=== PATIENT | female | born 1950 | race Hispanic/Latino ===

== ENCOUNTER 2017-03-26 05:48 | Day surgery (SDC) | payer OTHER ==
[2017-03-23 14:14] VITALS: BP 145/65
[2017-03-23 14:24] LABS: BASOPHILS % (AUTO) 0.6 % (0.0-5.0); EOSINOPHILS % (AUTO) 1.3 % (0.0-8.0); HEMATOCRIT 35.9 % (36-48); LYMPHOCYTES % (AUTO) 30.1 % (21.0-51.0); MEAN CORPUSCULAR HEMOGLOBIN 28.1 pg (27.0-33.0); MEAN CORPUSCULAR HGB CONC 33.8 g/dL (32.0-36.0); MEAN CORPUSCULAR VOLUME 83.1 fL (79-99); MONOCYTES % (AUTO) 8.2 % (3.0-13.0); NEUTROPHILS % (AUTO) 59.8 % (40.0-77.0); PLATELET COUNT (AUTO) 310 K/uL (130-400); RED BLOOD CELL COUNT(AUTO) 4.32 MIL/uL (4.00-5.50); RED CELL DISTRIBUTION WIDTH 14.7 % (11.0-15.5); WHITE BLOOD COUNT (AUTO) 8.5 K/uL (4.8-10.8)
[2017-03-23 14:35] LABS: CREATININE 0.8 mg/dL (0.5-1.5); POTASSIUM 3.8 mmol/L (3.5-5.1)
[2017-03-23 14:37] LABS: PROTHROMBIN TIME 10.5 SEC (9.6-11.6)
[~2017-03-26] VITALS: Ht 168.9 cm; Wt 123.1 kg
[2017-03-26] VITALS (7 sets, daily range): BP systolic 102–127; BP diastolic 46–92
[~2017-03-26 05:48] MED LIST: AEC81 PO; CHOL200026 PO; DILT240C3 PO; EZET10 PO; FURO20TA4 PO; ISOS30TA6 PO; NITR0.4T50 SL; RANO500T3 PO; ROSU40 PO; UBID200C18 PO; VALS1TAB75 PO
[2017-03-26] MEDS ORDERED: BUPIVACAINE/PF 0.25% 30ML VIAL IJ ONE (07:13)
[2017-03-26] MEDS ORDERED: LIDOCAINE HCL 1% MDV 50ML VIAL ONE (07:13)
[2017-03-26] MEDS ORDERED: CEFAZOLIN 1GM / D5W 50ML 150 ML ONE (07:26)
[2017-03-26] MEDS ORDERED: MEPERIDINE-PF 25 MG/ML SYG ONE ×2 (07:35→07:48)
[2017-03-26] MEDS ORDERED: MIDAZOLAM HCL 1 MG/ML 2ML VIAL ONE ×2 (07:35→07:48)
[2017-03-26] MEDS ORDERED: SODIUM CHLORIDE 0.9% 500ML 500 ML IV SCH (08:00)
[2017-03-26] MEDS ORDERED: DOXY100T2 PO (08:24)
[2017-03-26] MEDS ORDERED: ACETAMINOPHEN-CODEINE 300/30MG TAB PO PRN ×2 (08:30)
[2017-03-26] MEDS ORDERED: ONDANSETRON HCL 4 MG/2 ML VIAL IV PRN (08:30)
== END 2017-03-26 10:45 | disposition home or self-care (01) ==
LOC: DAH 05:48
PROVIDERS: ATTEND Internal Medicine Cardiovascular Disease
DX: R55 Syncope and collapse (principal); I25.10 Atherosclerotic heart disease of native coronary artery without angina pectoris; I10 Essential (primary) hypertension; G47.33 Obstructive sleep apnea (adult) (pediatric)
CPT/HCPCS: 33282; 36415; 80048; 85025; 85610; 85730; 93005; 99156; 99157; C1764; J0690; J2175 ×2; J2250 ×2; J3490 ×2; 99152; 99153

== ENCOUNTER → 2018-01-07 | Outpatient (CLI) | payer OTHER ==
[~2018-01-07] MED LIST changes: +DOXY100T2 PO
== END | disposition home or self-care (01) ==
LOC: OIH 10:37
PROVIDERS: ATTEND Internal Medicine
DX: J45.909 Unspecified asthma, uncomplicated (principal); R09.02 Hypoxemia; R06.02 Shortness of breath
CPT/HCPCS: 71046

== ENCOUNTER → 2019-03-18 | Outpatient (CLI) | payer OTHER ==
[~2019-03-18] VITALS: Ht 170.2 cm; Wt 125.2 kg
[~2019-03-18] MED LIST changes: -DILT240C3 PO; +DILT240C97 PO; -EZET10 PO; +EZET10TA13 PO; +REGADENOSON 0.4 MG/5 ML PF SYG IVP SCH
== END | disposition home or self-care (01) ==
LOC: SHCH 08:30
PROVIDERS: ATTEND Internal Medicine Cardiovascular Disease
DX: I25.10 Atherosclerotic heart disease of native coronary artery without angina pectoris (principal)
CPT/HCPCS: 78452; 93017; 96374; A9500 ×2; J2785

== ENCOUNTER → 2019-09-26 | Outpatient (CLI) | payer OTHER | END | disposition home or self-care (01) ==

== ENCOUNTER 2020-02-03 13:37 | Inpatient (IN) | payer OTHER ==
[~2020-02-03] VITALS: Ht 170.2 cm; Wt 122.0 kg
[~2020-02-03 13:37] MED LIST changes: -REGADENOSON 0.4 MG/5 ML PF SYG IVP SCH; -VALS1TAB75 PO; +VALS1TAB76 PO
[2020-02-03] MEDS ORDERED: ACETAMINOPHEN 325 MG TAB ONE (14:17)
[2020-02-03 14:20] LABS: BASOPHILS % (AUTO) 0.2 % (0.0-5.0); EOSINOPHILS % (AUTO) 0.5 % (0.0-8.0); HEMATOCRIT 38.8 % (36-48); LYMPHOCYTES % (AUTO) 4.1 % (21.0-51.0); MEAN CORPUSCULAR HEMOGLOBIN 28.3 pg (27.0-33.0); MEAN CORPUSCULAR VOLUME 83.3 fL (79-99); MONOCYTES % (AUTO) 3.9 % (3.0-13.0); NEUTROPHILS % (AUTO) 90.5 % (40.0-77.0); PLATELET COUNT (AUTO) 312 K/uL (130-400); RED BLOOD CELL COUNT(AUTO) 4.66 MIL/uL (4.00-5.50); WHITE BLOOD COUNT (AUTO) 18.9 K/uL (4.8-10.8)
[2020-02-03 14:22] LABS: APPEARANCE,URINE Clear (CLEAR); BILIRUBIN,URINE Negative (NEGATIVE); COLOR,URINE Yellow (YELLOW); GLUCOSE, URINE (UA) Negative (NEGATIVE); KETONES,URINE Negative (NEGATIVE); LEUKOCYTE ESTERASE ,URINE Negative (NEGATIVE); NITRATE,URINE Negative (NEGATIVE); OCCULT BLOOD,URINE Negative (NEGATIVE); PH,URINE 6.5 (5.0-8.0); PROTEIN,URINE Negative (NEGATIVE); UROBILINOGEN,URINE 0.2 mg/dL (0.2-1.0)
[2020-02-03] MEDS ORDERED: CEFTRIAXONE SODIUM 1 GM ONE (14:22)
[2020-02-03] MEDS ORDERED: SODIUM CHLORIDE 0.9% 50 ML IV ONE (14:23)
[2020-02-03 14:39] LABS: INR 0.94 (0.85-1.15); PARTIAL THROMBOPLASTIN TIME 28.5 SEC (26.3-35.5); PROTHROMBIN TIME 10.2 SEC (9.6-11.6)
[2020-02-03 14:39] LABS: ABG BASE EXCESS 0.9 mmol/L (-2.0-3.0); ABG HCO3 23.2 mmol/L (21.0-28.0); ABG PCO2 31 mmHg (32-45)
[2020-02-03 14:50] LABS: CARBON DIOXIDE 25 mmol/L (21-32); CHLORIDE 102 mmol/L (101-111); CREATININE 1.2 mg/dL (0.5-1.5); GLOMERULAR FILTR. RATE CALC 47 mL/min (>60); GLUCOSE,RANDOM 174 mg/dL (70-105); POTASSIUM 4.3 mmol/L (3.5-5.1); SODIUM SERUM 137 mmol/L (136-145); UREA NITROGEN, BLOOD 16 mg/dL (7-18)
[2020-02-03 15:02] LABS: ALANINE AMINOTRANSFERASE 28 U/L (12-78); ALBUMIN 3.2 g/dL (3.5-5.0); ASPARTATE AMINOTRANSFERASE 31 U/L (10-37); BILIRUBIN,TOTAL 0.6 mg/dL (0.2-1.0); CREATINE KINASE, TOTAL 268 U/L (21-232); MYOGLOBIN 193 ng/mL (10-92); TOTAL PROTEIN, SERUM 7.7 g/dL (6.0-8.3); TROPONIN I < 0.04 ng/mL (0.00-0.06)
[2020-02-03] MEDS ORDERED: AZITHROMYCIN 500MG+NS 250ML 250 ML IV ONE (15:05)
[2020-02-03] MEDS ORDERED: DOXYCYCLINE 100MG+NS 250ML IV SCH (16:45)
[2020-02-03] MEDS: CEFTRIAXONE SODIUM 1 GM IVP SCH (16:45)
[2020-02-03] MEDS: DEXAMETHASONE SOD PHOSPHATE 4 MG/ML 1ML VIAL IVP SCH (16:45)
[2020-02-03] MEDS ORDERED: ERGOCALCIFEROL (VITAMIN D2) 50,000 UNIT CAPSULE PO ONE (16:45)
[2020-02-03] MEDS: DOXYCYCLINE 100MG+NS 250ML 250 ML IV SCH (17:00)
[2020-02-03] MEDS ORDERED: HYDRALAZINE HCL 20 MG/ML VIAL IV PRN (17:00)
[2020-02-03] MEDS ORDERED: DEXAMETHASONE SOD PHOSPHATE 10MG/ML 1ML VIAL ONE (17:53)
[2020-02-03] MEDS ORDERED: DOXYCYCLINE 100MG+NS 250ML 250 ML IV ONE (17:54)
[2020-02-03] MEDS ORDERED: ERGOCALCIFEROL (VITAMIN D2) 50,000 UNIT CAPSULE ONE (17:54)
[2020-02-03] MEDS: IPRATROPIUM 0.5 MG/2.5 ML INH IH SCH (18:00)
[2020-02-03] MEDS ORDERED: FAMOTIDINE 20MG TAB 20 MG TAB ONE (20:28)
[2020-02-03] MEDS ORDERED: ACETYLCYSTEINE 600 MG CAPSULE ONE (20:28)
[2020-02-03] MEDS: ACETYLCYSTEINE 600 MG CAPSULE PO SCH (21:00)
[2020-02-04] MEDS: IPRATROPIUM 0.5 MG/2.5 ML INH IH SCH
[2020-02-04] MEDS ORDERED: CEFTRIAXONE SODIUM 1 GM ONE (02:21)
[2020-02-04] MEDS: CEFTRIAXONE SODIUM 1 GM IVP SCH ×2 (04:45→16:17)
[2020-02-04 04:59] LABS: BASOPHILS % (AUTO) 0.1 % (0.0-5.0); HEMATOCRIT 36.3 % (36-48); LYMPHOCYTES % (AUTO) 5.3 % (21.0-51.0); MEAN CORPUSCULAR HEMOGLOBIN 27.6 pg (27.0-33.0); MEAN CORPUSCULAR HGB CONC 33.3 g/dL (32.0-36.0); MEAN CORPUSCULAR VOLUME 82.9 fL (79-99); MONOCYTES % (AUTO) 1.8 % (3.0-13.0); NEUTROPHILS % (AUTO) 91.6 % (40.0-77.0); PLATELET COUNT (AUTO) 303 K/uL (130-400); RED BLOOD CELL COUNT(AUTO) 4.38 MIL/uL (4.00-5.50); RED CELL DISTRIBUTION WIDTH 14.8 % (11.0-15.5); WHITE BLOOD COUNT (AUTO) 14.2 K/uL (4.8-10.8)
[2020-02-04] MEDS: DOXYCYCLINE 100MG+NS 250ML 250 ML IV SCH ×2 (05:00→16:18)
[2020-02-04 05:21] LABS: ALBUMIN 2.8 g/dL (3.5-5.0); BILIRUBIN,TOTAL 0.3 mg/dL (0.2-1.0); CREATININE 0.9 mg/dL (0.5-1.5); POTASSIUM 4.3 mmol/L (3.5-5.1); TOTAL PROTEIN, SERUM 7.2 g/dL (6.0-8.3)
[2020-02-04 05:26] LABS: CRP QUANTITATIVE 310.1 mg/L (0.00-9.0)
[2020-02-04] MEDS ORDERED: ENOXAPARIN SODIUM 60 MG/0.6 ML SQ ONE (08:00)
[2020-02-04] MEDS ORDERED: ASCORBIC ACID 500 MG TAB ONE (08:00)
[2020-02-04] MEDS ORDERED: ZINC SULFATE 220 CAPSULE ONE (08:00)
[2020-02-04] MEDS ORDERED: FAMOTIDINE 20MG TAB 20 MG TAB ONE (08:01)
[2020-02-04] MEDS ORDERED: ONDANSETRON HCL 4 MG/2 ML VIAL IVP PRN (08:45)
[2020-02-04] MEDS: ASCORBIC ACID 500 MG TAB PO SCH (09:00)
[2020-02-04] MEDS: ACETYLCYSTEINE 600 MG CAPSULE PO SCH ×2 (09:00→21:03)
[2020-02-04] MEDS: ENOXAPARIN SODIUM 60 MG/0.6 ML SQ SCH (09:00)
[2020-02-04] MEDS: FAMOTIDINE 20MG TAB 20 MG TAB PO SCH (09:00)
[2020-02-04] MEDS: ZINC SULFATE 220 CAPSULE PO SCH (09:00)
[2020-02-04] MEDS: BENZONATATE 100 MG CAPSULE PO SCH ×2 (09:15→16:17)
[2020-02-04] MEDS ORDERED: ALBUTEROL INHALER 90MCG/INH IH PRN (09:30)
[2020-02-04 11:00] VITALS: BP 103/45
[2020-02-04 11:58] VITALS: BP 133/72
[2020-02-04] MEDS ORDERED: TURM500C9 PO (12:12)
[2020-02-04] MEDS ORDERED: LOSA50TA64 PO (12:12)
[2020-02-04] MEDS ORDERED: MAGN250T10 PO (12:12)
--- NOTE | 2020-02-04 15:46 | NUR ---
CM NOTE/IA UNABLE TO MET WITH PATIENT AT BEDSIDE. IA DONE BY RJ VERGARA. PER PATIENT, LIVES ALONE, INDEPENDENT WITH ADLS, NO USE OF PROVIDER SERVICES OR HOME HEALTH, HAS CPAP AND NEBULIZER IN USE, AND FEELS SAFE TO RETURN HOME ONCE DISCHARGED. Addendum: 02/04/20 at 1547 by SERGIO RASHID RN CM Amended: Links added.
[2020-02-04 15:55] VITALS: BP 112/55
[2020-02-04] MEDS: DEXAMETHASONE SOD PHOSPHATE 4 MG/ML 1ML VIAL IVP SCH (16:17)
[2020-02-04] MEDS: ACETAMINOPHEN 325 MG TAB PO PRN (16:18)
[2020-02-04] MEDS: ALBUTEROL INHALER 90MCG/INH IH SCH (17:57)
[2020-02-04 19:28] VITALS: BP 119/43
[2020-02-04] MEDS: GUAIFENESIN-DM 200/20 MG 10 ML PO PRN (22:27)
[2020-02-04 23:11] VITALS: BP 120/55
[2020-02-05] MEDS: BENZONATATE 100 MG CAPSULE PO SCH ×3 (01:15→18:25)
[2020-02-05 03:57] VITALS: BP 124/66
[2020-02-05] MEDS: DOXYCYCLINE 100MG+NS 250ML 250 ML IV SCH ×2 (04:34→22:49)
[2020-02-05] MEDS: CEFTRIAXONE SODIUM 1 GM IVP SCH ×2 (04:34→18:21)
[2020-02-05 05:18] LABS: BASOPHILS % (AUTO) 0.2 % (0.0-5.0); EOSINOPHILS % (AUTO) 0.3 % (0.0-8.0); HEMATOCRIT 36.3 % (36-48); LYMPHOCYTES % (AUTO) 5.6 % (21.0-51.0); MEAN CORPUSCULAR HEMOGLOBIN 27.9 pg (27.0-33.0); MEAN CORPUSCULAR HGB CONC 33.9 g/dL (32.0-36.0); MEAN CORPUSCULAR VOLUME 82.3 fL (79-99); MONOCYTES % (AUTO) 4.1 % (3.0-13.0); NEUTROPHILS % (AUTO) 88.5 % (40.0-77.0); PLATELET COUNT (AUTO) 353 K/uL (130-400); RED BLOOD CELL COUNT(AUTO) 4.41 MIL/uL (4.00-5.50); RED CELL DISTRIBUTION WIDTH 14.6 % (11.0-15.5); WHITE BLOOD COUNT (AUTO) 17.5 K/uL (4.8-10.8)
[2020-02-05 05:40] LABS: ALBUMIN 2.7 g/dL (3.5-5.0); BILIRUBIN,TOTAL 0.3 mg/dL (0.2-1.0); CREATININE 0.9 mg/dL (0.5-1.5); POTASSIUM 4.3 mmol/L (3.5-5.1); TOTAL PROTEIN, SERUM 7.1 g/dL (6.0-8.3)
[2020-02-05 06:06] LABS: CRP QUANTITATIVE 201.8 mg/L (0.00-9.0)
[2020-02-05 07:44] VITALS: BP 128/57
--- NOTE | 2020-02-05 08:45 | NUR ---
ASSESSMENT OOB in chair. O2 needs increased - now on 5LNC. Saturation on 3L 85% consistently. Denies acute chest pain or pressure. SOB with minimal exertion. Reports ongoing cough - productive - thin clear secretions per pt. Bibasilar crackles noted with auscultation. Apical heart tones are fair, regular. Skin is warm, dry. Abd obese, soft. Denies nausea or abd pain. 1+ pedal edema noted - non pitting. SL to right inner wrist/forearm area intact/patent. Assessment completed/recorded. Needed items placed within reach. Pt instructed to call for assistance as needed. Discussed tentative plan of care pending MD rounds. Questions addressed. No complaints voiced by pt.
[2020-02-05] MEDS: FAMOTIDINE 20MG TAB 20 MG TAB PO SCH (09:08)
[2020-02-05] MEDS: ACETYLCYSTEINE 600 MG CAPSULE PO SCH ×2 (09:09→21:14)
[2020-02-05] MEDS: ASCORBIC ACID 500 MG TAB PO SCH (09:09)
[2020-02-05] MEDS: ZINC SULFATE 220 CAPSULE PO SCH (09:09)
[2020-02-05] MEDS: ENOXAPARIN SODIUM 60 MG/0.6 ML SQ SCH (09:10)
[2020-02-05] MEDS: ALBUTEROL INHALER 90MCG/INH IH SCH ×4 (09:15→18:25)
[2020-02-05] MEDS ORDERED: PHARMACY COMMUNICATION MISC SCH (10:45)
--- NOTE | 2020-02-05 11:29 | NUR ---
PT CARE Informed consent obtained for transfusion of convalescent plasma.
[2020-02-05 12:23] VITALS: BP 116/53
[2020-02-05] MEDS: FUROSEMIDE 10 MG/ML 2ML VIAL IV SCH (13:18)
--- NOTE | 2020-02-05 13:18 | NUR ---
PT CARE Attempted to administer IV lasix;however, pt reported severe burning to insertion site. Attempted x3 to insert PIV - unsuccessful. Pending assistance of US for another attempt at IV insertion.
[2020-02-05] MEDS ORDERED: COMPOUND IV REFRIGERATED 1 EACH IVSOLN MISC PRN (13:30)
[2020-02-05] MEDS ORDERED: REMDESIVIR (EUA) 520 200 MG in SODIUM CHLORIDE 0.9% 250 ML IV ONE (13:30)
--- NOTE | 2020-02-05 15:58 | NUR ---
IV MANAGEMENT With use of US, 20ga SL inserted to RPF by MARISSA Oakes. IV meds administered at this time - remdesivir and lasix.
[2020-02-05 16:23] VITALS: BP 112/66
[2020-02-05] MEDS: DEXAMETHASONE SOD PHOSPHATE 4 MG/ML 1ML VIAL IVP SCH (18:22)
[2020-02-05] MEDS ORDERED: SODIUM CHLORIDE 0.9% 250 ML IV ONE (18:24)
[2020-02-05 21:09] VITALS: BP 131/62
[2020-02-05 23:25] VITALS: BP 133/64
[2020-02-06] MEDS: ALBUTEROL INHALER 90MCG/INH IH SCH ×4 (00:16→18:00)
[2020-02-06] MEDS: BENZONATATE 100 MG CAPSULE PO SCH ×3 (01:06→17:24)
[2020-02-06] MEDS: FUROSEMIDE 10 MG/ML 2ML VIAL IV SCH ×2 (01:06→12:52)
[2020-02-06 03:42] VITALS: BP 134/68
[2020-02-06 05:13] LABS: BASOPHILS % (AUTO) 0.2 % (0.0-5.0); HEMATOCRIT 35.7 % (36-48); LYMPHOCYTES % (AUTO) 8.2 % (21.0-51.0); MEAN CORPUSCULAR HEMOGLOBIN 27.4 pg (27.0-33.0); MEAN CORPUSCULAR HGB CONC 33.6 g/dL (32.0-36.0); MEAN CORPUSCULAR VOLUME 81.5 fL (79-99); MONOCYTES % (AUTO) 4.3 % (3.0-13.0); NEUTROPHILS % (AUTO) 84.3 % (40.0-77.0); PLATELET COUNT (AUTO) 369 K/uL (130-400); RED BLOOD CELL COUNT(AUTO) 4.38 MIL/uL (4.00-5.50); RED CELL DISTRIBUTION WIDTH 14.6 % (11.0-15.5); WHITE BLOOD COUNT (AUTO) 15.2 K/uL (4.8-10.8)
[2020-02-06] MEDS: CEFTRIAXONE SODIUM 1 GM IVP SCH ×2 (05:33→17:25)
[2020-02-06 05:38] LABS: ALBUMIN 2.9 g/dL (3.5-5.0); BILIRUBIN,TOTAL 0.3 mg/dL (0.2-1.0); CREATININE 0.9 mg/dL (0.5-1.5); POTASSIUM 3.8 mmol/L (3.5-5.1); TOTAL PROTEIN, SERUM 7.3 g/dL (6.0-8.3)
[2020-02-06] MEDS: PHARMACY COMMUNICATION MISC SCH (06:00)
[2020-02-06 08:00] VITALS: BP 139/67
[2020-02-06] MEDS: DOXYCYCLINE 100MG+NS 250ML 250 ML IV SCH ×2 (10:09→21:34)
[2020-02-06] MEDS: ACETYLCYSTEINE 600 MG CAPSULE PO SCH ×2 (10:09→20:13)
[2020-02-06] MEDS: ASPIRIN 81 MG EC TAB PO SCH (10:10)
[2020-02-06] MEDS: FAMOTIDINE 20MG TAB 20 MG TAB PO SCH (10:10)
[2020-02-06] MEDS: ZINC SULFATE 220 CAPSULE PO SCH (10:10)
[2020-02-06] MEDS: ASCORBIC ACID 500 MG TAB PO SCH (10:10)
[2020-02-06] MEDS: ENOXAPARIN SODIUM 60 MG/0.6 ML SQ SCH (10:11)
[2020-02-06 12:50] VITALS: BP 137/71
[2020-02-06] MEDS: REMDESIVIR (EUA) 520 100 MG in SODIUM CHLORIDE 0.9% 250 ML IV SCH (14:10)
[2020-02-06 16:00] VITALS: BP 143/76
[2020-02-06] MEDS: DEXAMETHASONE SOD PHOSPHATE 4 MG/ML 1ML VIAL IVP SCH (17:24)
[2020-02-06 19:13] VITALS: BP 134/56
[2020-02-06 23:26] VITALS: BP 156/68
[2020-02-07] MEDS: BENZONATATE 100 MG CAPSULE PO SCH ×3 (01:34→17:16)
[2020-02-07 03:40] VITALS: BP 129/68
[2020-02-07] MEDS: CEFTRIAXONE SODIUM 1 GM IVP SCH ×2 (05:04→17:16)
[2020-02-07 05:06] LABS: ABG BASE EXCESS -1.2 mmol/L (-2.0-3.0); ABG HCO3 22.3 mmol/L (21.0-28.0); ABG PCO2 34 mmHg (32-45)
[2020-02-07] MEDS: ALBUTEROL INHALER 90MCG/INH IH SCH ×4 (05:48→17:47)
[2020-02-07] MEDS: PHARMACY COMMUNICATION MISC SCH (06:00)
[2020-02-07 07:46] LABS: ALBUMIN 2.8 g/dL (3.5-5.0); BILIRUBIN,DIRECT 0.1 mg/dL (0.0-0.3); BILIRUBIN,TOTAL 0.4 mg/dL (0.2-1.0); CRP QUANTITATIVE 81.3 mg/L (0.00-9.0); TOTAL PROTEIN, SERUM 6.2 g/dL (6.0-8.3)
[2020-02-07 08:00] VITALS: BP 134/65
[2020-02-07] MEDS: DOXYCYCLINE 100MG+NS 250ML 250 ML IV SCH ×2 (09:16→20:55)
[2020-02-07] MEDS: ASPIRIN 81 MG EC TAB PO SCH (09:17)
[2020-02-07] MEDS: ZINC SULFATE 220 CAPSULE PO SCH (09:17)
[2020-02-07] MEDS: FUROSEMIDE 10 MG/ML 2ML VIAL IV SCH (09:18)
[2020-02-07] MEDS: FAMOTIDINE 20MG TAB 20 MG TAB PO SCH (09:18)
[2020-02-07] MEDS: ACETYLCYSTEINE 600 MG CAPSULE PO SCH ×2 (09:18→20:55)
[2020-02-07] MEDS: ASCORBIC ACID 500 MG TAB PO SCH (09:18)
[2020-02-07] MEDS: ENOXAPARIN SODIUM 60 MG/0.6 ML SQ SCH (09:19)
[2020-02-07 12:00] VITALS: BP 136/77
[2020-02-07] MEDS: REMDESIVIR (EUA) 520 100 MG in SODIUM CHLORIDE 0.9% 250 ML IV SCH (13:44)
[2020-02-07 16:00] VITALS: BP 135/72
[2020-02-07] MEDS: LORATADINE 10 MG TABLET PO SCH (17:16)
[2020-02-07] MEDS: DEXAMETHASONE SOD PHOSPHATE 4 MG/ML 1ML VIAL IVP SCH (17:16)
[2020-02-07 20:49] VITALS: BP 134/72
[2020-02-08] VITALS (7 sets, daily range): BP systolic 93–142; BP diastolic 53–77
[2020-02-08] MEDS: BENZONATATE 100 MG CAPSULE PO SCH ×3 (00:06→17:37)
[2020-02-08] MEDS: CEFTRIAXONE SODIUM 1 GM IVP SCH ×2 (04:06→17:37)
[2020-02-08] MEDS: ALBUTEROL INHALER 90MCG/INH IH SCH ×4 (05:10→21:23)
[2020-02-08 05:54] LABS: ALBUMIN 2.6 g/dL (3.5-5.0); BILIRUBIN,DIRECT 0.1 mg/dL (0.0-0.3); BILIRUBIN,TOTAL 0.4 mg/dL (0.2-1.0); CREATININE 0.8 mg/dL (0.5-1.5); CRP QUANTITATIVE 72.6 mg/L (0.00-9.0); MAGNESIUM 1.8 mg/dL (1.80-2.40); POTASSIUM 3.7 mmol/L (3.5-5.1); TOTAL PROTEIN, SERUM 6.6 g/dL (6.0-8.3)
[2020-02-08] MEDS: PHARMACY COMMUNICATION MISC SCH (06:00)
[2020-02-08] MEDS ORDERED: MAGNESIUM 2GM PREMIX 50ML 50 ML IV ONE (06:09)
[2020-02-08] MEDS ORDERED: MAGNESIUM 2GM PREMIX 50ML 50 ML IV PRN (06:15)
--- NOTE | 2020-02-08 07:30 | NUR ---
report received report from police shift commander nurse. pt alert and sitting on chair...introduced myself to patient as her nurse...
[2020-02-08] MEDS: LORATADINE 10 MG TABLET PO SCH (09:17)
[2020-02-08] MEDS: ASPIRIN 81 MG EC TAB PO SCH (09:17)
[2020-02-08] MEDS: DOXYCYCLINE 100MG+NS 250ML 250 ML IV SCH ×2 (09:17→20:40)
[2020-02-08] MEDS: FUROSEMIDE 10 MG/ML 2ML VIAL IV SCH (09:17)
[2020-02-08] MEDS: ACETYLCYSTEINE 600 MG CAPSULE PO SCH ×2 (09:17→20:40)
[2020-02-08] MEDS: ZINC SULFATE 220 CAPSULE PO SCH (09:17)
[2020-02-08] MEDS: ASCORBIC ACID 500 MG TAB PO SCH (09:17)
[2020-02-08] MEDS: FAMOTIDINE 20MG TAB 20 MG TAB PO SCH (09:17)
[2020-02-08] MEDS: ENOXAPARIN SODIUM 60 MG/0.6 ML SQ SCH (09:20)
--- NOTE | 2020-02-08 10:00 | NUR ---
mccoy mccoy ordered by noy ramesh due to frequent urination and bouts of desaturating of oxygen when she gets up to bedside commode chair. placed mccoy and patient tolerated procedure...
[2020-02-08] MEDS ORDERED: NITROGLYCERIN 0.4 MG SL TAB SL PRN (14:15)
[2020-02-08 15:12] LABS: CREATINE KINASE, TOTAL 59 U/L (21-232); MYOGLOBIN 80 ng/mL (10-92); TROPONIN I < 0.04 ng/mL (0.00-0.06)
[2020-02-08] MEDS: REMDESIVIR (EUA) 520 100 MG in SODIUM CHLORIDE 0.9% 250 ML IV SCH (15:15)
[2020-02-08] MEDS: DEXAMETHASONE SOD PHOSPHATE 4 MG/ML 1ML VIAL IVP SCH (17:37)
[2020-02-08 20:38] LABS: CREATINE KINASE, TOTAL 36 U/L (21-232); MYOGLOBIN 44 ng/mL (10-92); TROPONIN I < 0.04 ng/mL (0.00-0.06)
--- NOTE | 2020-02-08 20:40 | NUR ---
MEDS SHIFT ASSESSMENT DONE, PLEASE REFER TO CHART. PT ON NON-REBREATHER 100%, SITTING DOWN IN CARDIAC CHAIR. O2 SATS=94%. DUE MEDS ADMINISTERED, TOLERATED WELL. CALL LIGHT WITHIN REACH. WILL MONITOR PT. Addendum: 02/09/20 at 0003 by ESTEPHANIE SANDERSON RN RN Amended: Links added.
[2020-02-09] VITALS (7 sets, daily range): BP systolic 91–142; BP diastolic 36–79
[2020-02-09] MEDS: BENZONATATE 100 MG CAPSULE PO SCH ×4 (00:50→23:50)
[2020-02-09] MEDS: GUAIFENESIN-DM 200/20 MG 10 ML PO PRN (00:50)
--- NOTE | 2020-02-09 00:50 | NUR ---
COUGH PT AWAKENED AND HAD A COUGHING EPISODE. MEDICATED WITH TESSALON PEARLS AND GUAIFENESIN PO. ENCOURAGED TO GO BACK TO SLEEP. WILL CONTINUE TO MONITOR.
--- NOTE | 2020-02-09 02:00 | NUR ---
ROUNDS PT FAIRLY ASLEEP IN THE CARDIAC CHAIR, STILL ON 100% NON-REBREATHER WITH O2 SATS=94%. KEPT UNDISTURBED FOR NOW. CALL LIGHT WITHIN REACH.
[2020-02-09 04:16] LABS: ALANINE AMINOTRANSFERASE 32 U/L (12-78); ALBUMIN 2.6 g/dL (3.5-5.0); ASPARTATE AMINOTRANSFERASE 23 U/L (10-37); BILIRUBIN,DIRECT 0.2 mg/dL (0.0-0.3); BILIRUBIN,TOTAL 0.6 mg/dL (0.2-1.0); CREATINE KINASE, TOTAL 38 U/L (21-232); LACTATE DEHYDROGENASE 303 U/L (81-234); MYOGLOBIN 57 ng/mL (10-92); TOTAL PROTEIN, SERUM 6.7 g/dL (6.0-8.3); TROPONIN I < 0.04 ng/mL (0.00-0.06)
[2020-02-09] MEDS: CEFTRIAXONE SODIUM 1 GM IVP SCH ×2 (04:21→17:47)
[2020-02-09] MEDS: ALBUTEROL INHALER 90MCG/INH IH SCH ×5 (04:22→23:51)
--- NOTE | 2020-02-09 05:15 | NUR ---
RESULTS FAXED TO PHARMACY LFT RESULTS FOR REMDESEVIR DOSE.
[2020-02-09] MEDS: PHARMACY COMMUNICATION MISC SCH (05:21)
[2020-02-09 07:37] LABS: ABG BASE EXCESS -0.5 mmol/L (-2.0-3.0); ABG HCO3 22.2 mmol/L (21.0-28.0); ABG OXYGEN SATURATION 88.6 % (95.0-99.0); ABG PCO2 32 mmHg (32-45)
[2020-02-09] MEDS: DOXYCYCLINE 100MG+NS 250ML 250 ML IV SCH ×2 (08:58→20:25)
[2020-02-09] MEDS: FUROSEMIDE 10 MG/ML 2ML VIAL IV SCH (08:58)
[2020-02-09] MEDS: ASPIRIN 81 MG EC TAB PO SCH (08:59)
[2020-02-09] MEDS: LORATADINE 10 MG TABLET PO SCH (09:00)
[2020-02-09] MEDS: FAMOTIDINE 20MG TAB 20 MG TAB PO SCH (09:00)
[2020-02-09] MEDS: ACETYLCYSTEINE 600 MG CAPSULE PO SCH ×2 (09:00→20:26)
[2020-02-09] MEDS: ZINC SULFATE 220 CAPSULE PO SCH (09:02)
[2020-02-09] MEDS: ASCORBIC ACID 500 MG TAB PO SCH (09:02)
[2020-02-09] MEDS: ENOXAPARIN SODIUM 60 MG/0.6 ML SQ SCH (09:05)
--- NOTE | 2020-02-09 13:00 | NUR ---
REMDEMSEVIR GIVEN IV FLUSHED WITH 50MLS OF NS. NO REACTIONS.
[2020-02-09] MEDS: REMDESIVIR (EUA) 520 100 MG in SODIUM CHLORIDE 0.9% 250 ML IV SCH (13:50)
[2020-02-09] MEDS ORDERED: LACTULOSE 20 GM/30 ML UDCUP PO SCH (16:45)
[2020-02-09] MEDS: DEXAMETHASONE SOD PHOSPHATE 4 MG/ML 1ML VIAL IVP SCH (17:50)
[2020-02-10 03:12] VITALS: BP 137/66
[2020-02-10 04:29] LABS: ABG BASE EXCESS -0.7 mmol/L (-2.0-3.0); ABG HCO3 22.1 mmol/L (21.0-28.0); ABG OXYGEN SATURATION 94.7 % (95.0-99.0); ABG PCO2 32 mmHg (32-45)
[2020-02-10] MEDS: CEFTRIAXONE SODIUM 1 GM IVP SCH (04:35)
[2020-02-10 05:57] LABS: BASOPHILS % (AUTO) 0.2 % (0.0-5.0); HEMATOCRIT 38.6 % (36-48); LYMPHOCYTES % (AUTO) 4.4 % (21.0-51.0); MEAN CORPUSCULAR HEMOGLOBIN 27.7 pg (27.0-33.0); MEAN CORPUSCULAR HGB CONC 34.2 g/dL (32.0-36.0); MEAN CORPUSCULAR VOLUME 80.9 fL (79-99); MONOCYTES % (AUTO) 3.5 % (3.0-13.0); PLATELET COUNT (AUTO) 449 K/uL (130-400); RED BLOOD CELL COUNT(AUTO) 4.77 MIL/uL (4.00-5.50); RED CELL DISTRIBUTION WIDTH 14.6 % (11.0-15.5); WHITE BLOOD COUNT (AUTO) 24.7 K/uL (4.8-10.8)
[2020-02-10] MEDS: PHARMACY COMMUNICATION MISC SCH (06:00)
[2020-02-10] MEDS: ALBUTEROL INHALER 90MCG/INH IH SCH ×3 (06:01→16:45)
[2020-02-10 06:04] LABS: CARBON DIOXIDE 22 mmol/L (21-32); CHLORIDE 101 mmol/L (101-111); CREATININE 0.9 mg/dL (0.5-1.5); GLOMERULAR FILTR. RATE CALC 66 mL/min (>60); GLUCOSE,RANDOM 200 mg/dL (70-105); LACTATE DEHYDROGENASE 387 U/L (81-234); SODIUM SERUM 133 mmol/L (136-145); UREA NITROGEN, BLOOD 23 mg/dL (7-18)
[2020-02-10 06:17] LABS: B-TYPE NATRIURETIC PEPTIDE 21 pg/mL (0-100)
[2020-02-10 08:00] VITALS: BP 133/46
[2020-02-10] MEDS: DOXYCYCLINE 100MG+NS 250ML 250 ML IV SCH ×2 (08:53→21:00)
[2020-02-10] MEDS: ASCORBIC ACID 500 MG TAB PO SCH (08:54)
[2020-02-10] MEDS: BENZONATATE 100 MG CAPSULE PO SCH ×2 (08:54→16:16)
[2020-02-10] MEDS: LORATADINE 10 MG TABLET PO SCH (08:54)
[2020-02-10] MEDS: FAMOTIDINE 20MG TAB 20 MG TAB PO SCH (08:54)
[2020-02-10] MEDS: ZINC SULFATE 220 CAPSULE PO SCH (08:54)
[2020-02-10] MEDS: FUROSEMIDE 10 MG/ML 2ML VIAL IV SCH (08:54)
[2020-02-10] MEDS: ACETYLCYSTEINE 600 MG CAPSULE PO SCH ×2 (08:54→20:56)
[2020-02-10] MEDS: ASPIRIN 81 MG EC TAB PO SCH (08:54)
[2020-02-10] MEDS: ENOXAPARIN SODIUM 60 MG/0.6 ML SQ SCH (08:55)
[2020-02-10 12:54] VITALS: BP 126/60
[2020-02-10] MEDS: DEXAMETHASONE SOD PHOSPHATE 4 MG/ML 1ML VIAL IVP SCH (16:16)
[2020-02-10 16:41] VITALS: BP 163/76
[2020-02-10 20:38] VITALS: BP 108/79
[2020-02-11] MEDS: BENZONATATE 100 MG CAPSULE PO SCH ×3 (00:16→16:50)
[2020-02-11] MEDS: ALBUTEROL INHALER 90MCG/INH IH SCH ×4 (00:17→18:00)
[2020-02-11 01:46] VITALS: BP 140/76
[2020-02-11 04:20] VITALS: BP 149/87
[2020-02-11 04:28] LABS: ABG BASE EXCESS 0.7 mmol/L (-2.0-3.0); ABG HCO3 24.1 mmol/L (21.0-28.0); ABG OXYGEN SATURATION 93.1 % (95.0-99.0); ABG PCO2 35 mmHg (32-45)
[2020-02-11 05:24] LABS: BASOPHILS % (AUTO) 0.2 % (0.0-5.0); HEMATOCRIT 38.7 % (36-48); LYMPHOCYTES % (AUTO) 2.9 % (21.0-51.0); MEAN CORPUSCULAR HGB CONC 34.6 g/dL (32.0-36.0); MEAN CORPUSCULAR VOLUME 80.8 fL (79-99); MONOCYTES % (AUTO) 3.2 % (3.0-13.0); NEUTROPHILS % (AUTO) 92.2 % (40.0-77.0); PLATELET COUNT (AUTO) 432 K/uL (130-400); RED BLOOD CELL COUNT(AUTO) 4.79 MIL/uL (4.00-5.50); RED CELL DISTRIBUTION WIDTH 14.6 % (11.0-15.5); WHITE BLOOD COUNT (AUTO) 26.3 K/uL (4.8-10.8)
[2020-02-11 05:46] LABS: ALBUMIN 2.4 g/dL (3.5-5.0); BILIRUBIN,TOTAL 0.8 mg/dL (0.2-1.0); CREATININE 0.8 mg/dL (0.5-1.5); POTASSIUM 4.1 mmol/L (3.5-5.1)
[2020-02-11 06:07] LABS: CRP QUANTITATIVE 313.4 mg/L (0.00-9.0)
[2020-02-11 08:00] VITALS: BP 134/72
[2020-02-11] MEDS: DOXYCYCLINE 100MG+NS 250ML 250 ML IV SCH ×2 (09:00→21:54)
[2020-02-11] MEDS: FAMOTIDINE 20MG TAB 20 MG TAB PO SCH (09:46)
[2020-02-11] MEDS: ZINC SULFATE 220 CAPSULE PO SCH (09:46)
[2020-02-11] MEDS: ACETYLCYSTEINE 600 MG CAPSULE PO SCH ×2 (09:47→21:54)
[2020-02-11] MEDS: LORATADINE 10 MG TABLET PO SCH (09:47)
[2020-02-11] MEDS: ASCORBIC ACID 500 MG TAB PO SCH (09:47)
[2020-02-11] MEDS: ASPIRIN 81 MG EC TAB PO SCH (09:47)
[2020-02-11] MEDS: ENOXAPARIN SODIUM 60 MG/0.6 ML SQ SCH (09:48)
[2020-02-11] MEDS: FUROSEMIDE 10 MG/ML 2ML VIAL IV SCH (09:48)
[2020-02-11 11:53] VITALS: BP 150/62
--- NOTE | 2020-02-11 12:01 | NUR ---
RD NOTIFICATION Pt admitted due to COVID-19 and acute hypoxemic respiratory failure RD consulted for mild-edema to BLE and diabetic education. As per EMR, no diabetic hx nor MD notes on new DM dx. No A1c record in EMR. Pt's BMI is of 42.0 considered Obesity III. 198% IBW classified as obesity. Pt is currently on a heart healthy diet with ensure TID and consuming 50-100% of meals. Fair-appetite as per MD notes and EMR PO records. Pt is at risk for poor PO intake due to dx. Monitor PO intake daily. Contact dietary as nutritional concerns arise. RD RECOMMENDATION: Monitor PO intake Continue current diet order. ProMod 60 ml BID if PO intake and ONS intake declines LABS: NA 133, BUN 27, BG 165, FERRITIN 695, CRP 313, ALB 2.4, TOT PRO 7.0 Addendum: 02/11/20 at [address] Amended: Links added.
[2020-02-11 12:50] LABS: INR 1.03 (0.85-1.15); PROTHROMBIN TIME 11.1 SEC (9.6-11.6)
[2020-02-11] MEDS ORDERED: PHARMACY COMMUNICATION MISC SCH (15:30)
[2020-02-11] MEDS ORDERED: COMPOUND PO MISCELLANEOUS 1 EACH MISC MISC PRN (15:45)
[2020-02-11] MEDS: DEXAMETHASONE SOD PHOSPHATE 4 MG/ML 1ML VIAL IVP SCH ×2 (16:45→21:53)
[2020-02-11] MEDS: MAG HYDROX/AL HYDROX/SIMETH 60 ML, LIDOCAINE HCL 2% VISCOUS 60 ML, DIPHENHYDRAMINE HCL ... PO PRN ×3 (16:50)
[2020-02-11 16:54] VITALS: BP 130/58
[2020-02-11] MEDS ORDERED: VANCOMYCIN PROTOCOL PER PHARMACY IV SCH (17:15)
[2020-02-11] MEDS ORDERED: ZOSYN 3.375GM+NS 50ML 50 ML IV SCH (17:15)
[2020-02-11] MEDS ORDERED: RENAL DOSE IV SCH (17:15)
[2020-02-11] MEDS ORDERED: COMPOUND IV REFRIGERATED 1 EACH IVSOLN MISC PRN (17:30)
[2020-02-11 20:25] VITALS: BP 130/73
--- NOTE | 2020-02-11 21:43 | NUR ---
PICC LINE INSERTED TO RT UPPER ARM, 6FR TRIPLE LUMEN, TIP PLACED AT LOWER 1/3 OF SVC, OK TO USE PER VPS, REPORT GIVEN TO [place] BEAN RN
[2020-02-11] MEDS: ZOSYN 3.375GM+NS 50ML 50 ML IV SCH (21:52)
[2020-02-11] MEDS: VANCOMYCIN 1.5 GM in SODIUM CHLORIDE 0.9% 250 ML IV SCH (21:53)
[2020-02-12] VITALS (7 sets, daily range): BP systolic 129–155; BP diastolic 70–87
[2020-02-12] MEDS: BENZONATATE 100 MG CAPSULE PO SCH ×4 (01:07→16:50)
[2020-02-12] MEDS: GUAIFENESIN-CODEINE 5 ML SYRUP PO PRN ×3 (01:07→21:52)
[2020-02-12] MEDS: ALBUTEROL INHALER 90MCG/INH IH SCH ×4 (01:26→18:00)
[2020-02-12 04:46] LABS: BASOPHILS % (AUTO) 0.1 % (0.0-5.0); HEMATOCRIT 37.9 % (36-48); LYMPHOCYTES % (AUTO) 1.8 % (21.0-51.0); MEAN CORPUSCULAR HEMOGLOBIN 27.6 pg (27.0-33.0); MEAN CORPUSCULAR VOLUME 81.2 fL (79-99); MONOCYTES % (AUTO) 2.4 % (3.0-13.0); NEUTROPHILS % (AUTO) 94.3 % (40.0-77.0); PLATELET COUNT (AUTO) 399 K/uL (130-400); RED BLOOD CELL COUNT(AUTO) 4.67 MIL/uL (4.00-5.50); RED CELL DISTRIBUTION WIDTH 14.7 % (11.0-15.5); WHITE BLOOD COUNT (AUTO) 27.1 K/uL (4.8-10.8)
[2020-02-12 05:13] LABS: ALBUMIN 2.2 g/dL (3.5-5.0); BILIRUBIN,TOTAL 0.7 mg/dL (0.2-1.0); CREATININE 0.8 mg/dL (0.5-1.5); PHOSPHORUS 3.5 mg/dL (2.5-4.9); POTASSIUM 4.4 mmol/L (3.5-5.1); TOTAL PROTEIN, SERUM 6.5 g/dL (6.0-8.3)
[2020-02-12 05:32] LABS: CRP QUANTITATIVE 318.9 mg/L (0.00-9.0)
--- NOTE | 2020-02-12 05:52 | NUR ---
NOTIFIED SAVAGE ARMENDARIZ NP, PTs DDIMER AT 9904. ESTEBAN ARMENDARIZ, AWARE AND WILL NOTIFY PHYSICIAN. PT IS CURRENTLY ON LOVENOX 50MG QD.
[2020-02-12] MEDS: ZOSYN 3.375GM+NS 50ML 50 ML IV SCH ×3 (06:13→21:50)
[2020-02-12] MEDS ORDERED: ENOXAPARIN SODIUM 1 MG/KG SQ SCH (09:00)
[2020-02-12] MEDS: ZINC SULFATE 220 CAPSULE PO SCH (09:42)
[2020-02-12] MEDS: LORATADINE 10 MG TABLET PO SCH (09:42)
[2020-02-12] MEDS: ACETYLCYSTEINE 600 MG CAPSULE PO SCH ×2 (09:42→21:51)
[2020-02-12] MEDS: FAMOTIDINE 20MG TAB 20 MG TAB PO SCH (09:42)
[2020-02-12] MEDS: ASPIRIN 81 MG EC TAB PO SCH (09:42)
[2020-02-12] MEDS: ASCORBIC ACID 500 MG TAB PO SCH (09:42)
[2020-02-12] MEDS: ENOXAPARIN SODIUM 120 MG/0.8ML SQ SCH ×2 (09:43→21:54)
[2020-02-12] MEDS: FUROSEMIDE 10 MG/ML 2ML VIAL IV SCH (09:43)
[2020-02-12] MEDS: DOXYCYCLINE 100MG+NS 250ML 250 ML IV SCH ×2 (09:44→21:51)
[2020-02-12] MEDS: VANCOMYCIN 1.5 GM in SODIUM CHLORIDE 0.9% 250 ML IV SCH ×2 (09:49→21:51)
[2020-02-12] MEDS: MAG HYDROX/AL HYDROX/SIMETH 60 ML, LIDOCAINE HCL 2% VISCOUS 60 ML, DIPHENHYDRAMINE HCL ... PO PRN ×3 (10:27)
--- NOTE | 2020-02-12 11:12 | NUR ---
DC PLAN SPOKE TO DR. COOPER SAID NOT READY FOR [facility] REFERRAL. PATIENT CONDITION GUARDED NRB 15L FIO2 100 SAT 87%. TEMP 100.2. Addendum: 02/12/20 at 1114 by HANNAH ROBB RN CM Amended: Links added.
--- NOTE | 2020-02-12 11:15 | NUR ---
O2 PT PLACED ON HFNC @ 60L FIO2 100% BY RT.
[2020-02-12] MEDS: DEXAMETHASONE SOD PHOSPHATE 4 MG/ML 1ML VIAL IVP SCH (21:52)
[2020-02-13] VITALS (14 sets, daily range): BP systolic 127–171; BP diastolic 64–88
[2020-02-13] MEDS: BENZONATATE 100 MG CAPSULE PO SCH ×3 (01:15→16:16)
[2020-02-13] MEDS: ALBUTEROL INHALER 90MCG/INH IH SCH ×4 (01:16→18:00)
[2020-02-13] MEDS ORDERED: ZOLPIDEM TARTRATE 5 MG TAB PO ONE (01:30)
[2020-02-13 04:04] LABS: ABG BASE EXCESS -0.1 mmol/L (-2.0-3.0); ABG HCO3 23.5 mmol/L (21.0-28.0); ABG OXYGEN SATURATION 90.1 % (95.0-99.0); ABG PCO2 35 mmHg (32-45)
[2020-02-13 05:55] LABS: BASOPHILS % (AUTO) 0.1 % (0.0-5.0); HEMATOCRIT 38.1 % (36-48); LYMPHOCYTES % (AUTO) 2.2 % (21.0-51.0); MEAN CORPUSCULAR HGB CONC 34.1 g/dL (32.0-36.0); MEAN CORPUSCULAR VOLUME 82.1 fL (79-99); MONOCYTES % (AUTO) 1.9 % (3.0-13.0); NEUTROPHILS % (AUTO) 94.7 % (40.0-77.0); PLATELET COUNT (AUTO) 366 K/uL (130-400); RED BLOOD CELL COUNT(AUTO) 4.64 MIL/uL (4.00-5.50); RED CELL DISTRIBUTION WIDTH 14.9 % (11.0-15.5); WHITE BLOOD COUNT (AUTO) 24.3 K/uL (4.8-10.8)
[2020-02-13] MEDS: ZOSYN 3.375GM+NS 50ML 50 ML IV SCH ×3 (06:23→20:56)
[2020-02-13 06:27] LABS: ALBUMIN 2.3 g/dL (3.5-5.0); BILIRUBIN,DIRECT 0.3 mg/dL (0.0-0.3); BILIRUBIN,TOTAL 0.7 mg/dL (0.2-1.0); CREATININE 0.7 mg/dL (0.5-1.5); MAGNESIUM 2.1 mg/dL (1.80-2.40); PHOSPHORUS 3.9 mg/dL (2.5-4.9); POTASSIUM 4.1 mmol/L (3.5-5.1); TOTAL PROTEIN, SERUM 6.7 g/dL (6.0-8.3)
[2020-02-13 06:55] LABS: CRP QUANTITATIVE 245.7 mg/L (0.00-9.0)
--- NOTE | 2020-02-13 08:45 | NUR ---
AM ASSESSMENT PT LAYING IN BED, RESTING. ANXIOUS. A/O X 3. SOB ON EXERTION. HFNC @ 60L FIO2 100%. DENIES PAIN OR DISCOMFORT. TELE: SR. DENIES N/V AND/OR DIARRHEA. 16 FR FC PATENT & DRAINING. PT WANTING TO GET OOB TO RECLINER. REINFORCED FOR PT TO MAINTAIN BEDREST. INSTRUCTED TO CALL FOR ASSISTANCE. CALL LEILANI W/IN REACH.
[2020-02-13] MEDS: DOXYCYCLINE 100MG+NS 250ML 250 ML IV SCH ×2 (09:13→20:56)
[2020-02-13] MEDS: ASCORBIC ACID 500 MG TAB PO SCH (09:14)
[2020-02-13] MEDS: ACETYLCYSTEINE 600 MG CAPSULE PO SCH ×2 (09:14→20:56)
[2020-02-13] MEDS: LORATADINE 10 MG TABLET PO SCH (09:14)
[2020-02-13] MEDS: ZINC SULFATE 220 CAPSULE PO SCH (09:14)
[2020-02-13] MEDS: FAMOTIDINE 20MG TAB 20 MG TAB PO SCH (09:14)
[2020-02-13] MEDS: ASPIRIN 81 MG EC TAB PO SCH (09:14)
[2020-02-13] MEDS: FUROSEMIDE 10 MG/ML 2ML VIAL IV SCH ×3 (09:16→21:00)
[2020-02-13] MEDS: ENOXAPARIN SODIUM 120 MG/0.8ML SQ SCH ×2 (09:17→20:56)
[2020-02-13] MEDS: MAG HYDROX/AL HYDROX/SIMETH 60 ML, LIDOCAINE HCL 2% VISCOUS 60 ML, DIPHENHYDRAMINE HCL ... PO PRN ×3 (09:31)
[2020-02-13] MEDS: GUAIFENESIN-CODEINE 5 ML SYRUP PO PRN (09:31)
[2020-02-13] MEDS: VANCOMYCIN 1.5 GM in SODIUM CHLORIDE 0.9% 250 ML IV SCH (09:32)
--- NOTE | 2020-02-13 13:20 | NUR ---
MD VISIT DR MIKE IN TO SEE PT. PT'S CURRENT STATUS & PLAN OF CARE REVIEWED W/PT. PT DECLINES INTUBATION IF NEEDED. DR MIKE SPOKE W/PT'S DAUGHTER, ALBERT, VIA PT'S CELL PHONE. PLAN OF CARE & PT'S CURRENT STATUS REVIEWED W/PT'S DAUGHTER WHILE ON SPEAKER VIA PT'S CELL PHONE. PT & PT'S DAUGHTER QUESTIONS ENCOURAGED & CLARIFIED BY DR MIKE.
--- NOTE | 2020-02-13 13:45 | NUR ---
STATUS PT PLACED ON BIPAP @ THIS TIME. PT PENDING TO BE TRANSFERRED TO ICU.
[2020-02-13] MEDS ORDERED: GUAIFENESIN-CODEINE 5 ML SYRUP PO PRN (15:30)
--- NOTE | 2020-02-13 18:20 | NUR ---
TRANSFER PT TRANSFERRED TO [facility] 206 VIA BED, ASSISTED BY RT AND Rossana SURESH RN. PT ON NRBM @ 15 FOR TRANSFER. TOLERATED TRANSFER WELL.
--- NOTE | 2020-02-13 18:30 | NUR ---
FAMILY VISIT PT'S DAUGHTER, ALBERT, NOTIFIED VISITATION ALLOWED FOR 30 MIN TODAY.
--- NOTE | 2020-02-13 18:45 | NUR ---
FAMILY VISIT PT'S DAUGHTER, ALBERT, HERE TO SEE PT. DAUGHTER DONNED PPE.
[2020-02-13] MEDS: DEXAMETHASONE SOD PHOSPHATE 4 MG/ML 1ML VIAL IVP SCH (20:54)
--- NOTE | 2020-02-13 22:15 | NUR ---
NOTIFIED ON-CALL PROVIDER JOSH CONCERNING PT CXR. INFORMED TO ORDER REPEAT CXR FOR THE AM.
[2020-02-14] VITALS (24 sets, daily range): BP systolic 104–175; BP diastolic 53–99
[2020-02-14] MEDS: BENZONATATE 100 MG CAPSULE PO SCH ×3 (01:15→16:14)
[2020-02-14 04:11] LABS: ABG BASE EXCESS 0.2 mmol/L (-2.0-3.0); ABG HCO3 24.8 mmol/L (21.0-28.0); ABG PCO2 40 mmHg (32-45)
[2020-02-14 04:37] LABS: HEMATOCRIT 39.7 % (36-48); MEAN CORPUSCULAR HEMOGLOBIN 27.5 pg (27.0-33.0); MEAN CORPUSCULAR HGB CONC 33.8 g/dL (32.0-36.0); MEAN CORPUSCULAR VOLUME 81.4 fL (79-99); RED BLOOD CELL COUNT(AUTO) 4.88 MIL/uL (4.00-5.50); RED CELL DISTRIBUTION WIDTH 14.9 % (11.0-15.5); WHITE BLOOD COUNT (AUTO) 28.3 K/uL (4.8-10.8)
[2020-02-14 04:47] LABS: INR 1.05 (0.85-1.15); PARTIAL THROMBOPLASTIN TIME 29.9 SEC (26.3-35.5); PROTHROMBIN TIME 11.3 SEC (9.6-11.6)
[2020-02-14 05:00] LABS: ALBUMIN 2.5 g/dL (3.5-5.0); BILIRUBIN,TOTAL 0.9 mg/dL (0.2-1.0); CREATININE 0.8 mg/dL (0.5-1.5); MAGNESIUM 1.8 mg/dL (1.80-2.40); PHOSPHORUS 4.2 mg/dL (2.5-4.9); POTASSIUM 4.1 mmol/L (3.5-5.1); TOTAL PROTEIN, SERUM 6.6 g/dL (6.0-8.3)
[2020-02-14] MEDS: FUROSEMIDE 10 MG/ML 2ML VIAL IV SCH (05:33)
[2020-02-14] MEDS: ALBUTEROL INHALER 90MCG/INH IH SCH ×2 (05:33)
[2020-02-14] MEDS: ZOSYN 3.375GM+NS 50ML 50 ML IV SCH (05:33)
[2020-02-14] MEDS: ENOXAPARIN SODIUM 120 MG/0.8ML SQ SCH (09:37)
[2020-02-14] MEDS: ASPIRIN 81 MG EC TAB PO SCH (09:38)
[2020-02-14] MEDS: ACETYLCYSTEINE 600 MG CAPSULE PO SCH (09:38)
[2020-02-14] MEDS: ZINC SULFATE 220 CAPSULE PO SCH (09:38)
[2020-02-14] MEDS: ACETAMINOPHEN 325 MG TAB PO PRN (09:39)
[2020-02-14] MEDS: DOXYCYCLINE 100MG+NS 250ML 250 ML IV SCH (09:40)
[2020-02-14] MEDS: FAMOTIDINE 20MG TAB 20 MG TAB PO SCH (09:40)
[2020-02-14] MEDS: ASCORBIC ACID 500 MG TAB PO SCH (09:40)
[2020-02-14] MEDS: LORATADINE 10 MG TABLET PO SCH (09:40)
[2020-02-14] MEDS ORDERED: MEROPENEM 1 GM VIAL IVP SCH (10:30)
[2020-02-14] MEDS: SODIUM CHLORIDE 0.9% 1000ML 1,000 ML IV SCH ×2 (11:43→16:25)
[2020-02-14] MEDS: INSULIN HUMULIN R 100 UNIT/ML 3ML SQ SCH ×2 (11:45→16:30)
[2020-02-14] MEDS ORDERED: MORPHINE SULFATE 2 MG/ML 1ML SYG IVP PRN (14:30)
[2020-02-14] MEDS ORDERED: LORAZEPAM 2 MG/ML 1 ML VIAL IVP PRN (14:30)
[2020-02-14 15:59] LABS: BASOPHILS % (AUTO) 0.2 % (0.0-5.0); LYMPHOCYTES % (AUTO) 2.9 % (21.0-51.0); MEAN CORPUSCULAR HEMOGLOBIN 28.1 pg (27.0-33.0); MEAN CORPUSCULAR HGB CONC 33.2 g/dL (32.0-36.0); MEAN CORPUSCULAR VOLUME 84.6 fL (79-99); MONOCYTES % (AUTO) 3.5 % (3.0-13.0); PLATELET COUNT (AUTO) 313 K/uL (130-400); RED BLOOD CELL COUNT(AUTO) 4.02 MIL/uL (4.00-5.50); WHITE BLOOD COUNT (AUTO) 27.4 K/uL (4.8-10.8)
[2020-02-14] MEDS ORDERED: AMIODARONE HCL 50 MG/ML 3 ML VIAL ONE ×2 (16:01→16:41)
[2020-02-14 16:11] LABS: POTASSIUM 3.7 mmol/L (3.5-5.1)
[2020-02-14 16:32] LABS: ABG BASE EXCESS -7.7 mmol/L (-2.0-3.0); ABG HCO3 16.2 mmol/L (21.0-28.0); ABG OXYGEN SATURATION 86.2 % (95.0-99.0); ABG PCO2 30 mmHg (32-45)
[2020-02-14] MEDS ORDERED: AMIODARONE HCL 50 MG/ML 3 ML VIAL IV ONE (16:45)
[2020-02-14] MEDS ORDERED: OLANZAPINE 10MG/ML 1ML VIAL IM PRN (16:45)
[2020-02-14] MEDS ORDERED: PHENYLEPHRINE HCL 100 MG in SODIUM CHLORIDE 0.9% 250 ML IV SCH (16:45)
--- NOTE | 2020-02-14 16:45 | NUR ---
A-fib with RVR at 1550 pt's rhythm changed to A-fib with RVR, EKG obtained. Dr. Suggs notified and orders received. at 1637, Dr. Suggs notified of ABG results and updated on pt's clinical condition with improved but continuing A-fib with RVR. Orders received.
[2020-02-14] MEDS ORDERED: AMIODARONE HCL 900 MG in DEXTROSE 5%-WATER 500 ML IV SCH (17:00)
--- NOTE | 2020-02-14 18:37 | NUR ---
ventricular tachycardia at approx 1730 pt was found to be in ventricular tachycardia. palpable pulse present. pt pulseless seconds thereafter, code blue called. please see code blue charting and documentation of .
== END 2020-02-14 17:50 | disposition expired | DRG 177 ==
LOC: EDH 13:37 → EDHIP 16:32 → 2AH 02-04 09:33 → 2BH 02-13 19:09
PROVIDERS: ADMIT Hospitalist; ATTEND Hospitalist
PROC: XW033E5 Introduction of Remdesivir Anti-infective into Peripheral Vein, Percutaneous Approach, New Technology Group 5 (ICD-10-PCS; principal; 2020-02-05)
PROC: XW13325 Transfusion of Convalescent Plasma (Nonautologous) into Peripheral Vein, Percutaneous Approach, New Technology Group 5 (ICD-10-PCS; 2020-02-05)
PROC: 5A09357 Assistance with Respiratory Ventilation, Less than 24 Consecutive Hours, Continuous Positive Airway Pressure (ICD-10-PCS; 2020-02-10)
PROC: 02HV33Z Insertion of Infusion Device into Superior Vena Cava, Percutaneous Approach (ICD-10-PCS; 2020-02-11)
PROC: B548ZZA Ultrasonography of Superior Vena Cava, Guidance (ICD-10-PCS; 2020-02-11)
PROC: 5A0935A Assistance with Respiratory Ventilation, Less than 24 Consecutive Hours, High Flow/Velocity Cannula (ICD-10-PCS; 2020-02-12)
PROC: 5A0935A Assistance with Respiratory Ventilation, Less than 24 Consecutive Hours, High Flow/Velocity Cannula (ICD-10-PCS; 2020-02-13)
PROC: 5A09357 Assistance with Respiratory Ventilation, Less than 24 Consecutive Hours, Continuous Positive Airway Pressure (ICD-10-PCS; 2020-02-13)
PROC: 5A0935A Assistance with Respiratory Ventilation, Less than 24 Consecutive Hours, High Flow/Velocity Cannula (ICD-10-PCS; 2020-02-14)
PROC: 5A09357 Assistance with Respiratory Ventilation, Less than 24 Consecutive Hours, Continuous Positive Airway Pressure (ICD-10-PCS; 2020-02-14)
PROC: 0W9930Z Drainage of Right Pleural Cavity with Drainage Device, Percutaneous Approach (ICD-10-PCS; 2020-02-14)
PROC: 5A12012 Performance of Cardiac Output, Single, Manual (ICD-10-PCS; 2020-02-14)
DX: U07.1 COVID-19 (principal); J12.89 Other viral pneumonia; J96.01 Acute respiratory failure with hypoxia; I50.31 Acute diastolic (congestive) heart failure; J44.1 Chronic obstructive pulmonary disease with (acute) exacerbation; J44.0 Chronic obstructive pulmonary disease with (acute) lower respiratory infection; J93.83 Other pneumothorax; Z68.41 Body mass index [BMI] 40.0-44.9, adult; Z77.22 Contact with and (suspected) exposure to environmental tobacco smoke (acute) (chronic); I25.10 Atherosclerotic heart disease of native coronary artery without angina pectoris; E66.01 Morbid (severe) obesity due to excess calories; E78.5 Hyperlipidemia, unspecified; G47.33 Obstructive sleep apnea (adult) (pediatric); I11.0 Hypertensive heart disease with heart failure; G89.29 Other chronic pain; M54.9 Dorsalgia, unspecified; J98.2 Interstitial emphysema; Z79.51 Long term (current) use of inhaled steroids; Z80.1 Family history of malignant neoplasm of trachea, bronchus and lung; Z80.41 Family history of malignant neoplasm of ovary; Z82.0 Family history of epilepsy and other diseases of the nervous system; Z82.3 Family history of stroke; Z82.49 Family history of ischemic heart disease and other diseases of the circulatory system; Z82.5 Family history of asthma and other chronic lower respiratory diseases; Z83.3 Family history of diabetes mellitus; Z90.710 Acquired absence of both cervix and uterus; Z91.19 Patient's noncompliance with other medical treatment and regimen; Z95.1 Presence of aortocoronary bypass graft; Z88.2 Allergy status to sulfonamides
CPT/HCPCS: 36415; 36430; 36600; 71045; 71250; 80048; 80053; 80076; 80202; 81003; 82550; 82728; 82803; 82948; 83605; 83615; 83735; 83874; 83880; 84100; 84145; 84484; 85025; 85027; 85378; 85610; 85730; 86140; 86850; 86900; 86901; 86927; 87040; 87088; 87426; 92950; 93005; 94660; C1751; C1894; G0378; J0282; J0456; J0696; J1100; J1650; J1940; J2060; J2185; J2370; J2543; J3370; J3475; J3490; J7030; J7050; J7060